=== PATIENT | male | born 1960 | race Hispanic/Latino ===

== ENCOUNTER → 2022-09-03 | Day surgery (SDC) | payer BC ==
[~2022-09-03] MED LIST: AMLODIPINE BESY10 MG PO; ATORVASTATIN CA10 MG PO; LACTATED RINGER'S 1,000 ML ONE; LIDOCAINE HCL 2% LOCAL INJ 5 ML SDV VIAL INJ ONE; METFORMIN HCL500 MG PO; MIDAZOLAM HCL 2 MG/2 ML VIAL ONE; PROPOFOL IV EMULSION 10 MG/ML 20 ML VIAL ONE; TRESIBA FL100 UNIT/1
[2022-09-03 16:45] VITALS: BP 125/81
== END | disposition home or self-care (01) ==
LOC: OR 12:35
PROVIDERS: ATTEND Internal Medicine Gastroenterology
DX: K21.9 Gastro-esophageal reflux disease without esophagitis (principal); K29.70 Gastritis, unspecified, without bleeding; K21.00 Gastro-esophageal reflux disease with esophagitis, without bleeding; K44.9 Diaphragmatic hernia without obstruction or gangrene; E11.9 Type 2 diabetes mellitus without complications; I10 Essential (primary) hypertension; Z01.810 Encounter for preprocedural cardiovascular examination; Z79.4 Long term (current) use of insulin; Z79.84 Long term (current) use of oral hypoglycemic drugs; Z79.1 Long term (current) use of non-steroidal anti-inflammatories (NSAID); Z79.899 Other long term (current) drug therapy; Z80.0 Family history of malignant neoplasm of digestive organs
CPT/HCPCS: 36415; 43239; 82948; 93005; J2001; J2250; J2704; J7121; 45378; 45385